=== PATIENT | male | born 1945 | race Caucasian/White ===

== ENCOUNTER 2021-07-11 19:10 | Inpatient (IN) | payer OTHER ==
[~2021-07-11] VITALS: Ht 157.5 cm; Wt 59.9 kg
[2021-07-11 21:54] LABS: EOSINOPHILS % 2.6 % (0.0-5.0); HEMATOCRIT. 40.9 % (42.0-52.0); HEMOGLOBIN. 13.5 g/dL (14.0-18.0); LYMPHOCYTES % 20.7 % (20.0-50.0); MEAN CORPUSCULAR HEMOGLOBIN 28.4 pg (28.0-32.0); MEAN CORPUSCULAR VOLUME 86.1 fL (80.0-94.0); MEAN PLATELET VOLUME 8.6 fl (7.4-10.4); MONOCYTES % 6.1 % (2.0-8.0); NEUTROPHILS % 69.6 % (40.0-76.0); PLATELET 269 x1000/uL (130-400); RED BLOOD CELL COUNT 4.75 mill/uL (4.7-6.1); RED CELL DISTRIBUTION WIDTH 18.5 % (11.6-14.6)
[2021-07-11 22:00] LABS: CHLORIDE 105 mEq/L (98-107)
[2021-07-11 22:32] LABS: CLARITY URINE CLOUDY (CLEAR); COLOR URINE DARK YELLOW (YELLOW); KETONES URINE TRACE (NEGATIVE); LEUKOCYTE ESTERASE URINE 2+ (NEGATIVE); NITRITE URINE NEGATIVE (NEGATIVE); OCCULT BLOOD URINE 3+ (NEGATIVE); PROTEIN URINE 2+ (NEGATIVE); SPECIFIC GRAVITY URINE 1.021 (1.005-1.030)
[2021-07-11] MEDS ORDERED: CEFTRIAXONE 1 G PREMIX 50 ML IV ONE (22:45)
[2021-07-12 08:00] VITALS: BP 124/86
[2021-07-12] MEDS ORDERED: MORPHINE SULFATE 2 MG/ML CPJ (NOT FOR IM USE) IV PRN (09:15)
[2021-07-12] MEDS ORDERED: DIPHENHYDRAMINE 50MG/ML VIAL IV PRN (09:15)
[2021-07-12] MEDS ORDERED: IPRATROPIUM/ALBUTEROL 0.5-3(2.5)MG/3ML NEB HHN PRN (09:15)
[2021-07-12] MEDS ORDERED: ACETAMINOPHEN 325MG TABLET PO PRN (09:15)
[2021-07-12] MEDS ORDERED: ONDANSETRON HCL 4MG/2ML INJ IV PRN (09:15)
[2021-07-12] MEDS ORDERED: CLONIDINE 0.1MG TABLET PO PRN (09:15)
[2021-07-12] MEDS ORDERED: NALOXONE HCL 0.4MG/ML VIAL IV PRN (09:30)
[2021-07-12 12:00] VITALS: BP 130/89
[2021-07-12 12:13] VITALS: BP 124/86
[2021-07-12] MEDS ORDERED: ASPI-986 MT (12:34)
[2021-07-12] MEDS ORDERED: ASCO100T12 MT (12:34)
[2021-07-12] MEDS ORDERED: ATOR40TA70 MT (12:35)
[2021-07-12] MEDS ORDERED: DOCU-150 PO (12:36)
[2021-07-12] MEDS ORDERED: ESCI20TA37 PO (12:36)
[2021-07-12] MEDS ORDERED: FERR325T6 PO (12:37)
[2021-07-12] MEDS ORDERED: FINA5TAB11 PO (12:38)
[2021-07-12] MEDS ORDERED: INSU100V37 SQ (12:39)
[2021-07-12] MEDS ORDERED: HYDR50TA PO (12:40)
[2021-07-12 16:00] VITALS: BP 127/86
[2021-07-12] MEDS: DOCUSATE SODIUM 100MG CAPSULE PO SCH (17:00)
[2021-07-12] MEDS: FERROUS SULFATE 325MG TABLET PO SCH (18:08)
[2021-07-12] MEDS ORDERED: DEXTROSE 50% WATER 50ML SYRINGE IV PRN (18:30)
[2021-07-12 20:00] VITALS: BP 134/84
[2021-07-12] MEDS: BLOOD SUGAR DIAGNOSTIC STRIP TEST SCH (21:00)
[2021-07-12] MEDS: INSULIN LISPRO 100 UNITS/ML SUBCUT SCH (21:00)
[2021-07-12] MEDS: CEFTRIAXONE 1,000 MG in DEXTROSE 5% WATER 50 ML IV SCH (23:11)
[2021-07-13] VITALS: BP 123/82
[2021-07-13 04:00] VITALS: BP 121/80
[2021-07-13] MEDS: BLOOD SUGAR DIAGNOSTIC STRIP TEST SCH ×4 (06:36→21:55)
[2021-07-13] MEDS: INSULIN LISPRO 100 UNITS/ML SUBCUT SCH ×4 (07:50→21:00)
[2021-07-13 08:00] VITALS: BP 113/71
[2021-07-13 08:53] LABS: HEMATOCRIT. 37.6 % (42.0-52.0); HEMOGLOBIN. 12.4 g/dL (14.0-18.0); LYMPHOCYTES % 28.9 % (20.0-50.0); MEAN CORPUSCULAR HEMOGLOBIN 28.5 pg (28.0-32.0); MEAN CORPUSCULAR VOLUME 86.2 fL (80.0-94.0); MEAN PLATELET VOLUME 8.9 fl (7.4-10.4); MONOCYTES % 7.5 % (2.0-8.0); NEUTROPHILS % 59.6 % (40.0-76.0); PLATELET 233 x1000/uL (130-400); RED BLOOD CELL COUNT 4.36 mill/uL (4.7-6.1); RED CELL DISTRIBUTION WIDTH 18.7 % (11.6-14.6)
[2021-07-13 09:08] LABS: CHLORIDE 106 mEq/L (98-107)
[2021-07-13] MEDS: DOCUSATE SODIUM 100MG CAPSULE PO SCH ×2 (09:35→16:34)
[2021-07-13] MEDS: ASPIRIN 325MG TABLET PO SCH (09:35)
[2021-07-13] MEDS: ATORVASTATIN CALCIUM 40MG TABLET PO SCH (09:36)
[2021-07-13] MEDS: FINASTERIDE 5MG TABLET PO SCH (09:37)
[2021-07-13] MEDS: HYDROCHLOROTHIAZIDE 25MG TABLET PO SCH (09:37)
[2021-07-13] MEDS: ASCORBIC ACID 250 MG TABLET PO SCH (09:37)
[2021-07-13] MEDS: FERROUS SULFATE 325MG TABLET PO SCH ×3 (09:38→16:34)
[2021-07-13 12:00] VITALS: BP 124/75
[2021-07-13] MEDS ORDERED: POTASSIUM CHLORIDE 20MEQ TABLET SR PO SCH (14:45)
[2021-07-13 16:00] VITALS: BP 105/69
[2021-07-13 20:00] VITALS: BP 126/69
[2021-07-13] MEDS: CEFTRIAXONE 1,000 MG in DEXTROSE 5% WATER 50 ML IV SCH (22:06)
[2021-07-14] VITALS: BP 119/78
[2021-07-14 04:00] VITALS: BP 124/74
[2021-07-14] MEDS: BLOOD SUGAR DIAGNOSTIC STRIP TEST SCH ×4 (06:43→20:43)
[2021-07-14] MEDS: INSULIN LISPRO 100 UNITS/ML SUBCUT SCH ×4 (07:50→20:43)
[2021-07-14 08:00] VITALS: BP 115/65
[2021-07-14 08:50] LABS: CHLORIDE 105 mEq/L (98-107)
[2021-07-14] MEDS: DOCUSATE SODIUM 100MG CAPSULE PO SCH ×2 (09:07→18:11)
[2021-07-14] MEDS: ASCORBIC ACID 250 MG TABLET PO SCH (09:07)
[2021-07-14] MEDS: ASPIRIN 325MG TABLET PO SCH (09:08)
[2021-07-14] MEDS: ATORVASTATIN CALCIUM 40MG TABLET PO SCH (09:08)
[2021-07-14] MEDS: FINASTERIDE 5MG TABLET PO SCH (09:08)
[2021-07-14] MEDS: FERROUS SULFATE 325MG TABLET PO SCH ×3 (09:08→18:11)
[2021-07-14] MEDS: HYDROCHLOROTHIAZIDE 25MG TABLET PO SCH (09:08)
[2021-07-14 09:20] LABS: BASOPHILS % 1.3 % (0.0-2.0); EOSINOPHILS % 3.7 % (0.0-5.0); HEMATOCRIT. 37.8 % (42.0-52.0); HEMOGLOBIN. 12.7 g/dL (14.0-18.0); LYMPHOCYTES % 27.7 % (20.0-50.0); MEAN CORPUSCULAR HEMOGLOBIN 28.6 pg (28.0-32.0); MEAN CORPUSCULAR VOLUME 85.5 fL (80.0-94.0); MEAN PLATELET VOLUME 8.9 fl (7.4-10.4); NEUTROPHILS % 60.3 % (40.0-76.0); PLATELET 226 x1000/uL (130-400); RED BLOOD CELL COUNT 4.42 mill/uL (4.7-6.1); RED CELL DISTRIBUTION WIDTH 18.1 % (11.6-14.6)
[2021-07-14] MEDS ORDERED: POTASSIUM CHLORIDE 20MEQ/PACKET PO NR (11:30)
[2021-07-14 12:00] VITALS: BP 120/72
[2021-07-14 16:00] VITALS: BP 113/68
[2021-07-14 20:00] VITALS: BP 116/77
[2021-07-14] MEDS: CEFTRIAXONE 1,000 MG in DEXTROSE 5% WATER 50 ML IV SCH (22:11)
[2021-07-15] VITALS (7 sets, daily range): BP systolic 114–137; BP diastolic 74–83
[2021-07-15] MEDS: BLOOD SUGAR DIAGNOSTIC STRIP TEST SCH ×4 (07:01→21:00)
[2021-07-15 07:12] LABS: EOSINOPHILS % 3.8 % (0.0-5.0); HEMATOCRIT. 36.9 % (42.0-52.0); HEMOGLOBIN. 12.2 g/dL (14.0-18.0); LYMPHOCYTES % 25.1 % (20.0-50.0); MEAN CORPUSCULAR HEMOGLOBIN 28.5 pg (28.0-32.0); MEAN CORPUSCULAR VOLUME 85.9 fL (80.0-94.0); MEAN PLATELET VOLUME 8.7 fl (7.4-10.4); MONOCYTES % 5.7 % (2.0-8.0); NEUTROPHILS % 64.4 % (40.0-76.0); PLATELET 230 x1000/uL (130-400); RED BLOOD CELL COUNT 4.29 mill/uL (4.7-6.1); RED CELL DISTRIBUTION WIDTH 18.2 % (11.6-14.6)
[2021-07-15 07:40] LABS: CHLORIDE 105 mEq/L (98-107)
[2021-07-15] MEDS: INSULIN LISPRO 100 UNITS/ML SUBCUT SCH ×4 (07:50→21:00)
[2021-07-15] MEDS: DOCUSATE SODIUM 100MG CAPSULE PO SCH ×2 (11:10→17:39)
[2021-07-15] MEDS: ASPIRIN 325MG TABLET PO SCH (11:11)
[2021-07-15] MEDS: HYDROCHLOROTHIAZIDE 25MG TABLET PO SCH (11:11)
[2021-07-15] MEDS: ATORVASTATIN CALCIUM 40MG TABLET PO SCH (11:12)
[2021-07-15] MEDS: FINASTERIDE 5MG TABLET PO SCH (11:12)
[2021-07-15] MEDS: ASCORBIC ACID 250 MG TABLET PO SCH (11:13)
[2021-07-15] MEDS: FERROUS SULFATE 325MG TABLET PO SCH ×3 (11:13→17:39)
[2021-07-15] MEDS ORDERED: POTASSIUM CHLORIDE 20MEQ/PACKET PO NR (16:00)
[2021-07-15] MEDS: CEFTRIAXONE 1,000 MG in DEXTROSE 5% WATER 50 ML IV SCH (22:31)
[2021-07-16] VITALS: BP 131/74
[2021-07-16 04:00] VITALS: BP 144/86
[2021-07-16] MEDS: BLOOD SUGAR DIAGNOSTIC STRIP TEST SCH (06:52)
[2021-07-16] MEDS: FERROUS SULFATE 325MG TABLET PO SCH (06:52)
[2021-07-16] MEDS: INSULIN LISPRO 100 UNITS/ML SUBCUT SCH (06:53)
== END 2021-07-16 08:13 | DRG 466 ==
LOC: ER 19:10 → 6EST 23:17 → ENRESERV 07-12 07:52
PROVIDERS: ADMIT Internal Medicine; ATTEND Internal Medicine
PROC: 0T2BX0Z Change Drainage Device in Bladder, External Approach (ICD-10-PCS; principal; 2021-07-11)
DX: T83.028A Displacement of other urinary catheter, initial encounter (principal); F03.90 Unspecified dementia, unspecified severity, without behavioral disturbance, psychotic disturbance, mood disturbance, and anxiety; E11.9 Type 2 diabetes mellitus without complications; N39.0 Urinary tract infection, site not specified; E78.5 Hyperlipidemia, unspecified; Y73.8 Miscellaneous gastroenterology and urology devices associated with adverse incidents, not elsewhere classified; I10 Essential (primary) hypertension; E78.00 Pure hypercholesterolemia, unspecified; Z79.899 Other long term (current) drug therapy; Z79.82 Long term (current) use of aspirin; Z87.440 Personal history of urinary (tract) infections; Y92.128 Other place in nursing home as the place of occurrence of the external cause
CPT/HCPCS: 36415; 80048; 80053; 81003; 82962; 83036; 84443; 85025; 93970; 99285; J0696; J2270; J7040; J7060